=== PATIENT | male | born 1940 | race Asian ===

== ENCOUNTER 2019-02-14 17:47 | Emergency (ER) | payer OTHER, MEDICARE ==
[~2019-02-14] VITALS: Ht 167.6 cm; Wt 82.6 kg
[2019-02-14 17:53] VITALS: BP_SYST 161
[2019-02-14] MEDS ORDERED: IBUPROFEN 600 MG TABLET PO ONE (19:00)
[2019-02-14] MEDS ORDERED: CYCLOBENZAPRINE HCL 10 MG TABLET (FLEXERIL) PO ONE (19:00)
[2019-02-14 19:50] VITALS: BP_SYST 151
== END 2019-02-14 19:50 | disposition home or self-care (01) ==
LOC: SED 17:47
DX: S22.31XA Fracture of one rib, right side, initial encounter for closed fracture (principal); X58.XXXA Exposure to other specified factors, initial encounter; Y93.89 Activity, other specified; Y92.89 Other specified places as the place of occurrence of the external cause; Y99.8 Other external cause status
CPT/HCPCS: 71110; 99283